=== PATIENT | male | born 1980 | race Caucasian/White ===

== ENCOUNTER 2018-06-20 22:00 | Emergency (ER) | payer SELFPAY ==
[~2018-06-20] VITALS: Ht 165.1 cm; Wt 96.7 kg
[2018-06-20 22:34] VITALS: Ht 165.1 cm; Wt 96.7 kg
--- NOTE | 2018-06-20 23:50 | ERD ---
ER Documentation Chief Complaint Chief Complaint FEELS LIKE SOMETHING IN LEFT EYE HPI The patient is a 38-year-old male, presenting to the ER because he feels as if there is something in his left eye for the last 2 days, he works in construction, denies blurred vision, complains of watery eye discharge. He denies headache, neck pain, chest pain, dyspnea, abdominal pain, vomiting, dysuria. He smokes and drinks socially. Past medical/surgical history: None ROS All systems reviewed and are negative except as per history of present illness. Medications Home Meds Active Scripts Gentamicin Sulfate* (Gentamicin Sulfate* Ophth) 0.3% - 5 Ml Drops, 1 DROP LEFT EYE Q4 for 7 Days, EA Prov:AMALIA LIZARRAGA MD 06/21/18 Allergies Allergies: Coded Allergies: No Known Allergy (Unverified , 06/21/18) Physical Exam Vitals Vital Signs Date Temp Pulse Resp B/P (MAP) Pulse Ox O2 O2 Flow FiO2 Time Delivery Rate 06/21/18 98 16 159/91 98 Room Air 02:08 (113) 06/20/18 99.2 101 18 183/112 97 22:34 (135) Physical Exam Const: No acute distress. Head: Atraumatic. Eyes: left eye with watery discharge, visible foreign body at 3 o'clock position ENT: Normal External Ears, Nose and Mouth. Neck: Full range of motion. No meningismus. Resp: Clear to auscultation bilaterally. Cardio: Regular rate and rhythm. Abd: Soft, non distended, normal bowel sounds, non tender. Skin: No petechiae or rashes. Back: No midline or flank tenderness. Ext: No cyanosis, or edema. Neur: Awake and alert. No focal deficit Psych: Normal Mood and Affect. Results 24 hrs Current Medications Medications Dose Sig/Dusty Start Time Status Last (Trade) Ordered Route PRN Stop Time Admin Dose Reason Admin Tetracaine 5 drop ONCE STAT 06/21/18 DC 06/21/18 HCl LEFT EYE 00:15 06/21/18 00:15 (Tetracaine 00:17 0.5% Steri-Unit Shantel) Fluorescein 1 strip ONCE ONCE 06/21/18 DC 06/21/18 Sodium LEFT EYE 00:30 06/21/18 01:05 (Enbra-[id number]-Uokg 00:31 p) Procedures/MDM MEDICAL MAKING DECISION: The patient is a 38-year-old male, presenting with acute left corneal foreign body, embedded, must be removed by marine cargo surveyor. He is stable for outpatient follow-up The differential diagnoses considered include but are not limited to corneal abrasion, foreign body, keratitis, ulceration Procedure: The left eye was anesthetized with tetracaine eyedrops, stained with fluorescein stain, minimal uptake with foreign body 3 o'clock position Departure Diagnosis: Primary Impression: Corneal foreign body Condition: Good Comments He was discharged with gentamicin eyedrop The patient's blood pressure was elevated (>120/80) but appears stable without evidence of hypertension emergency or urgency. The patient was counseled about the risks of hypertension and urged to pursue outpatient monitoring and therapy within a week with their primary care physician. I discussed the findings with the patient. I advised the patient to follow-up with [facility] or [facility] in am and return if any concern. Disclaimer: Inadvertent spelling and grammatical errors are likely due to EHR/dictation software use and do not reflect on the overall quality of patient care. Also, please note that the electronic time recorded on this note does not necessarily reflect the actual time of the patient encounter. AMALIA LIZARRAGA MD Jun 20, 2018 23:50
[2018-06-21] MEDS ORDERED: TETRACAINE 0.5% 4 ML OPH LEFT EYE STA (00:15)
[2018-06-21] MEDS ORDERED: FLUORESCEIN STRIP LEFT EYE ONE (00:30)
[2018-06-21] MEDS ORDERED: GENT5DRO28 LEFT EYE (01:59)
[2018-06-21 02:08] VITALS: BP 159/91; PULSE 98; RESP 16
== END 2018-06-21 02:08 | disposition home or self-care (01) ==
LOC: E/R 22:00
DX: T15.02XA Foreign body in cornea, left eye, initial encounter (principal); X58.XXXA Exposure to other specified factors, initial encounter; Y92.9 Unspecified place or not applicable
CPT/HCPCS: 99283